=== PATIENT | female | born 1950 | race Two or more races ===

== ENCOUNTER 2024-08-07 12:41 | Emergency (ER) | payer OTHER ==
[~2024-08-07] VITALS: Ht 132.1 cm; Wt 61.2 kg
[2024-08-07] MEDS ORDERED: 0.9 % SODIUM CHLORIDE 1,000 ML IV STA (13:14)
[2024-08-07 14:18] LABS: HEMATOCRIT 39.1 % (36.0-45.00); HEMOGLOBIN 13.1 g/dL (12.0-15.00); MEAN CELL VOLUME 95.4 fL (80.00-100.00); MEAN CORPUSCULAR HEMOGLOBIN 31.9 pg (27.00-32.0); MEAN CORPUSCULAR HGB CONC 33.4 g/dl (32.0-36.0); PLATELET COUNT 278 K/uL (150-450); RED CELL DISTRIBUTION WIDTH 14.6 % (11.5-14.5)
[2024-08-07 14:34] LABS: INR 0.96; PARTIAL THROMBOPLASTIN TIME 27.6 SECONDS (22.0-34.0); PROTHROMBIN TIME 10.5 SECONDS (9.0-11.5)
[2024-08-07 14:58] LABS: ALBUMIN 3.9 gm/dL (3.4-5.0); BILIRUBIN TOTAL 0.32 mg/dL (0.3-1.2); CALCIUM 9.7 mg/dL (8.5-10.1); CREATININE SERUM 0.87 mg/dL (0.55-1.02); GFR 63.3; GLOBULINA 3.7 G/DL (2.4-3.5); POTASSIUM 4.89 mEq/L (3.5-5.1); TOTAL PROTEIN 7.6 gm/dL (6.4-8.2)
[2024-08-07 15:08] LABS: PH,URINE 6.5 (5.0-8.0); URINE APPEARANCE Clear; URINE BILIRRUBIN Negative (NEGATIVE); URINE BLOOD Negative; URINE COLOR Yellow; URINE GLUCOSE Negative (NEGATIVE); URINE KETONE Negative (NEGATIVE); URINE LEUKOCYTE Negative; URINE NITRATE Negative; URINE PROTEIN Negative (NEGATIVE); URINE UROBILINOGEN 0.2 E.U./dl
[2024-08-07 15:10] LABS: URINE BACTERIA 16.3 uL (0.0-1933); URINE EPITHELIAL CELLS 1.5 uL (0.0-38.8); URINE RBC 34.9 uL (0.0-20.8); URINE WBC 3.2 uL (0.0-23.2)
[2024-08-07 15:25] LABS: ABG PH 7.419 (7.35-7.45); ABG PO2 70.5 mmHg (80-100); ABG pCO2 43.5 mmHg (35-45); BASE EXCESS 2.6 mmol/l; BICARBONATE 27.5 mmol/l (23-25); SaO2 94.4 %; Tco2 28.8 mmol/l
[2024-08-07 15:29] LABS: URINE CAST 0.76 uL (0.0-1.40)
[2024-08-07 16:07] LABS: allen test SATISFACTORY; o2 21 %; puncture site RADIAL RIGHT
[2024-08-07] MEDS ORDERED: DIPHENHYDRAMINE HCL 50 MG/ML VIAL 1ML ONE (16:41)
[2024-08-07] MEDS ORDERED: DIPHENHYDRAMINE HCL 50 MG/ML VIAL 1ML IV ONE (16:45)
== END 2024-08-07 20:24 | disposition home or self-care (01) ==
LOC: ER 12:41
PROVIDERS: General Practice
DX: R53.81 Other malaise (principal); G30.9 Alzheimer's disease, unspecified; F02.80 Dementia in other diseases classified elsewhere, unspecified severity, without behavioral disturbance, psychotic disturbance, mood disturbance, and anxiety; I95.9 Hypotension, unspecified; R68.89 Other general symptoms and signs
CPT/HCPCS: 36415; 70460; 71045; 82803; 93005; 96365; 96366; 99284; J1200; J7030; Q9965